=== PATIENT | male | born 1960 | race Asian ===

== ENCOUNTER 2022-01-30 15:10 | Inpatient (IN) | payer MEDICAID, OTHER ==
[~2022-01-30] VITALS: Ht 170.2 cm; Wt 64.3 kg
[2022-01-30] MEDS ORDERED: LABETALOL HCL 5 MG/ML 4ML SYRINGE IV ONE (15:30)
[2022-01-30] MEDS ORDERED: ASPirin 325 MG TAB PO ONE (15:30)
[2022-01-30 16:02] LABS: Basophils # (auto) 0.1 10 ^3/uL (0-0.2); Eosinophils # (auto) 0.1 10 ^3/uL (0-0.8); Lymphocytes # (auto) 2.4 10 ^3/uL (0.4-5.4); Monocytes # (auto) 0.6 10 ^3/uL (0-1.3); Nucleated Red Blood Cells % 0.1 %
[2022-01-30 16:04] LABS: Basophils % (auto) 0.9 % (0.0-2.0); Eosinophils % (auto) 0.9 % (0.0-7.0); Hematocrit 55.8 % (41.0-53.0); Hemoglobin 18.7 g/dL (13.5-17.5); Lymphocytes % (auto) 29.3 % (10.0-50.0); Mean Corpuscular Hemoglobin 31.2 pg (28.0-32.0); Mean Corpuscular Hgb Conc. 33.5 g/dL (32.0-36.0); Mean Corpuscular Volume 93.1 fL (80.0-100.0); Monocytes % (auto) 6.8 % (0.0-12.0); Neutrophils # (auto) 5.1 10 ^3/uL (1.6-8.6); Neutrophils % (auto) 62.1 % (37.0-80.0); Red Blood Cells 5.99 10^6/uL (4.5-5.90); Red Cell Distribution Width 14.3 % (11.8-14.3); White Blood Cell 8.2 10^3/uL (4.4-10.8)
[2022-01-30 16:26] LABS: Albumin 4.3 g/dL (3.4-5.0); BUN/Creatinine Ratio 11.2; Bilirubin, Total 0.6 mg/dL (0.2-1.0); Calcium 9.5 mg/dL (8.5-10.1); Total Protein 7.7 g/dL (6.4-8.2)
[2022-01-30 17:19] LABS: INR 0.97 (0.9-1.15); Partial Thromboplastin Time 27.3 sec (24.6-33.4)
[2022-01-30] MEDS ORDERED: NITROGLYCERIN 0.4 MG SL TAB SL PRN (20:00)
[2022-01-30] MEDS ORDERED: ONDANSETRON HCL 4 MG/2 ML VIAL IV PRN (20:00)
[2022-01-30] MEDS ORDERED: hydrALAZINE HCL 20 MG/ML VL IV ONE (20:00)
[2022-01-30] MEDS ORDERED: DOCUSATE SOD 100 MG CAP PO PRN (20:00)
[2022-01-30] MEDS ORDERED: HYDROcodone-ACET 5/325MG TAB PO PRN (20:00)
[2022-01-30] MEDS ORDERED: MORPHINE SULFATE INJ 2 MG/ml SYRG IV PRN (20:00)
[2022-01-30] MEDS ORDERED: LISINOPRIL 10 MG TAB PO ONE (21:15)
[2022-01-30 23:05] LABS: Urine Bacteria NONE SEEN /hpf (None Seen); Urine Blood 3+ /uL (Negative); Urine Budding Yeast MODERATE /hpf (None Seen); Urine Mucus FEW (None Seen); Urine Specific Gravity 1.019 (1.001-1.035); Urine WBC 41 /hpf (0 - 3)
[2022-01-31 06:49] LABS: Basophils # (auto) 0.1 10 ^3/uL (0-0.2); Basophils % (auto) 0.6 % (0.0-2.0); Eosinophils # (auto) 0.2 10 ^3/uL (0-0.8); Eosinophils % (auto) 1.9 % (0.0-7.0); Hematocrit 50.9 % (41.0-53.0); Hemoglobin 17.1 g/dL (13.5-17.5); Lymphocytes # (auto) 2.1 10 ^3/uL (0.4-5.4); Lymphocytes % (auto) 24.7 % (10.0-50.0); Mean Corpuscular Hgb Conc. 33.6 g/dL (32.0-36.0); Mean Corpuscular Volume 92.4 fL (80.0-100.0); Monocytes # (auto) 0.6 10 ^3/uL (0-1.3); Monocytes % (auto) 7.5 % (0.0-12.0); Neutrophils # (auto) 5.6 10 ^3/uL (1.6-8.6); Neutrophils % (auto) 65.3 % (37.0-80.0); Nucleated Red Blood Cells % 0.1 %; Red Blood Cells 5.52 10^6/uL (4.5-5.90); Red Cell Distribution Width 14.4 % (11.8-14.3); White Blood Cell 8.6 10^3/uL (4.4-10.8)
[2022-01-31 07:37] LABS: Albumin 3.7 g/dL (3.4-5.0); BUN/Creatinine Ratio 16.4; Bilirubin, Total 0.6 mg/dL (0.2-1.0); Potassium 3.6 mmol/L (3.5-5.1); Total Protein 7.1 g/dL (6.4-8.2)
[2022-01-31 09:03] LABS: Alcohol, Urine < 3.0 mg/dL (0-10); Amphetamine Screen, Urine NEGATIVE (NEGATIVE); Barbiturate Scree,Urine NEGATIVE (NEGATIVE); Benzodiazephine Screen, Urine NEGATIVE (NEGATIVE); Cannabinoid Screen, Urine POSITIVE (NEGATIVE); Cocaine Screen, Urine NEGATIVE (NEGATIVE); Opiate Scree,Urine NEGATIVE (NEGATIVE); Phencyclidine Screen, Urine NEGATIVE (NEGATIVE)
[2022-01-31 09:19] LABS: Cholesterol 179 mg/dL (< 200); HDL Cholesterol 41 mg/dL (40-59); LDL Cholesterol 128 mg/dL (< 100); Triglycerides 143 mg/dL (< 150)
[2022-01-31] MEDS ORDERED: ASPirin 81 mg TAB PO SCH (10:00)
[2022-01-31] MEDS: LISINOPRIL 10 MG TAB PO SCH (10:01)
[2022-01-31] MEDS: PANTOPRAZOLE 40 MG/10 ML VIAL INJ IV SCH (10:01)
[2022-01-31] MEDS: SODIUM CHLORIDE 0.9% 1,000 ML IV SCH ×2 (10:02→21:52)
[2022-01-31] MEDS: NICOTINE 14 MG/24HR TOPICAL PATCH TD SCH (10:12)
[2022-01-31] MEDS ORDERED: LORazepam 2MG/ML-1ML VIAL IV PRN (10:15)
[2022-01-31] MEDS: hydrALAZINE HCL 20 MG/ML VL IV PRN (15:40)
[2022-01-31 17:00] VITALS: BP_SYST 156; BP_SYST 170; BP_DIAS 84; BP_DIAS 89
[2022-01-31] MEDS ORDERED: METOPROLOL TARTRATE 1MG/1ML-5ML VIAL IV ONE (17:15)
[2022-01-31 17:40] VITALS: BP 143/76
[2022-01-31 17:42] VITALS: BP 143/87
[2022-01-31] MEDS: ATORVASTATIN 20 MG TAB PO SCH (21:49)
[2022-01-31 22:00] VITALS: BP 114/66
[2022-02-01] VITALS: BP_SYST 114; BP_SYST 142; BP_DIAS 66; BP_DIAS 82
[2022-02-01 05:00] VITALS: BP 108/65
[2022-02-01 07:57] VITALS: BP 145/85
[2022-02-01] MEDS: PANTOPRAZOLE 40 MG/10 ML VIAL INJ IV SCH (09:41)
[2022-02-01] MEDS: NICOTINE 14 MG/24HR TOPICAL PATCH TD SCH (09:41)
[2022-02-01] MEDS: LISINOPRIL 10 MG TAB PO SCH (09:41)
[2022-02-01] MEDS ORDERED: LIDOCAINE VISCOUS 2% 15ML UD MT ONE (12:45)
[2022-02-01] MEDS ORDERED: fentaNYL CITRATE 100 MCG/2 ML VL IV ONE (12:45)
[2022-02-01] MEDS ORDERED: diphenhdrAMINE HCL 50 MG/1 ML VL IV ONE (12:45)
[2022-02-01] MEDS ORDERED: MIDAZOLAM HCL 2MG/2ML 2ml VIAL (1mg/ml) IV ONE (12:45)
[2022-02-01 13:24] VITALS: BP 153/87
[2022-02-01 16:00] VITALS: BP 157/94
[2022-02-01] MEDS: APIXABAN 5 MG TAB PO SCH (22:02)
[2022-02-01] MEDS: ATORVASTATIN 20 MG TAB PO SCH (22:02)
[2022-02-01] MEDS: METOPROLOL TARTRATE 25 MG TAB PO SCH (22:02)
[2022-02-02] VITALS: BP 142/82
[2022-02-02 08:00] VITALS: BP 152/86
[2022-02-02] MEDS: PANTOPRAZOLE 40 MG/10 ML VIAL INJ IV SCH (09:56)
[2022-02-02] MEDS: APIXABAN 5 MG TAB PO SCH ×2 (09:56→21:38)
[2022-02-02] MEDS: METOPROLOL TARTRATE 25 MG TAB PO SCH ×2 (09:57→21:43)
[2022-02-02] MEDS: LISINOPRIL 10 MG TAB PO SCH (09:58)
[2022-02-02] MEDS: NICOTINE 14 MG/24HR TOPICAL PATCH TD SCH (09:58)
[2022-02-02 13:00] VITALS: BP 166/90
[2022-02-02] MEDS: hydrALAZINE HCL 20 MG/ML VL IV PRN (15:01)
[2022-02-02 16:00] VITALS: BP 144/81
[2022-02-02] MEDS: ATORVASTATIN 20 MG TAB PO SCH (21:38)
[2022-02-02 22:00] VITALS: BP 152/92
[2022-02-03] VITALS: BP 152/92
[2022-02-03 05:00] VITALS: BP 148/88
[2022-02-03 08:00] VITALS: BP 158/97
[2022-02-03] MEDS ORDERED: MET25T PO (10:14)
[2022-02-03] MEDS ORDERED: APIX5TAB PO (10:14)
[2022-02-03] MEDS ORDERED: ATOR20TA50 PO (10:14)
[2022-02-03] MEDS: PANTOPRAZOLE 40 MG/10 ML VIAL INJ IV SCH (10:16)
[2022-02-03] MEDS: APIXABAN 5 MG TAB PO SCH (10:16)
[2022-02-03] MEDS: LISINOPRIL 10 MG TAB PO SCH (10:17)
[2022-02-03] MEDS: NICOTINE 14 MG/24HR TOPICAL PATCH TD SCH (10:18)
[2022-02-03] MEDS: METOPROLOL TARTRATE 25 MG TAB PO SCH (10:18)
[2022-02-03 12:50] VITALS: BP 144/85
[2022-02-03 16:00] VITALS: BP 144/85
== END 2022-02-03 17:12 | disposition home or self-care (01) | DRG 45 ==
LOC: ER 15:10 → TELE 20:13 → TELE-CENTR 01-31 16:26
PROVIDERS: ADMIT Nurse Practitioner Family; ATTEND Family Medicine
PROC: B24BZZ4 Ultrasonography of Heart with Aorta, Transesophageal (ICD-10-PCS; principal; 2022-02-01)
DX: I63.9 Cerebral infarction, unspecified (principal); E11.22 Type 2 diabetes mellitus with diabetic chronic kidney disease; I51.3 Intracardiac thrombosis, not elsewhere classified; E11.65 Type 2 diabetes mellitus with hyperglycemia; I12.9 Hypertensive chronic kidney disease with stage 1 through stage 4 chronic kidney disease, or unspecified chronic kidney disease; N18.31 Chronic kidney disease, stage 3a; N40.0 Benign prostatic hyperplasia without lower urinary tract symptoms; E78.5 Hyperlipidemia, unspecified; F12.20 Cannabis dependence, uncomplicated; Z20.822 Contact with and (suspected) exposure to COVID-19; I48.0 Paroxysmal atrial fibrillation; Z79.01 Long term (current) use of anticoagulants; Z82.49 Family history of ischemic heart disease and other diseases of the circulatory system; Z79.899 Other long term (current) drug therapy; Z79.82 Long term (current) use of aspirin; Z72.0 Tobacco use; Z71.6 Tobacco abuse counseling; I16.9 Hypertensive crisis, unspecified
CPT/HCPCS: 36415; 70450; 70545; 70551; 71045; 80053; 80061; 80307; 81001; 83036; 83880; 84154; 84443; 84484; 85025; 85610; 85730; 87426; 93005; 93312; 93886; 96361; 96374; 96375; 96376; 97110; 97116; 97162; 97530; 99152; C9113; G0378; J2250; J2405; J3490

== ENCOUNTER 2023-02-05 08:51 | Day surgery (SDC) | payer MEDICAID ==
[2023-02-05] VITALS (7 sets, daily range): BP systolic 118–159; BP diastolic 72–88; PULSE 72–90; RESP 13–22; O2SAT 98–100
[~2023-02-05] VITALS: Ht 170.2 cm; Wt 53.1 kg
[~2023-02-05 08:51] MED LIST: APIX5TAB PO; ATOR20TA50 PO; MET25T PO
[2023-02-05] MEDS ORDERED: ANGIOMAX 250 MG VIAL IV ONE (12:07)
[2023-02-05] MEDS ORDERED: HEPARIN SODIUM (PORCINE) 5000 UNITS/ML 1ML VIAL ONE (12:07)
[2023-02-05] MEDS ORDERED: SODIUM CHL 0.9% 0 ML ONE (12:08)
[2023-02-05] MEDS ORDERED: MIDAZOLAM HCL 2MG/2ML 2ml VIAL (1mg/ml) ONE (12:08)
[2023-02-05] MEDS ORDERED: fentaNYL CITRATE 100 MCG/2 ML VL ONE (12:08)
[2023-02-05] MEDS ORDERED: IOHEXOL 350 MG/ML 100ML IJ ONE (12:08)
[2023-02-05] MEDS ORDERED: VERAPAMIL 2.5MG/ML INJ 2ML VIAL IV ONE (12:08)
[2023-02-05] MEDS ORDERED: LIDOCAINE 2%HCL (LOCAL ANESTH.) INJ 20ML MDV ONE (12:09)
== END 2023-02-05 15:21 | disposition home or self-care (01) ==
LOC: CATH 08:51
PROVIDERS: ATTEND Internal Medicine
DX: I25.118 Atherosclerotic heart disease of native coronary artery with other forms of angina pectoris (principal); R94.39 Abnormal result of other cardiovascular function study; F17.210 Nicotine dependence, cigarettes, uncomplicated; F41.9 Anxiety disorder, unspecified; Z79.899 Other long term (current) drug therapy
CPT/HCPCS: 93458; C1725; C1769; C1887; J1644; J2250; J3010; Q9967; 99152